=== PATIENT | male | born 1965 | race Caucasian/White ===

== ENCOUNTER 2021-04-09 13:49 | Emergency (ER) | payer MEDICAID ==
[~2021-04-09] VITALS: Ht 175.3 cm; Wt 81.6 kg
[2021-04-09 14:10] VITALS: BP_SYST 131
[2021-04-09 15:57] VITALS: BP_SYST 131
== END 2021-04-09 15:57 ==
LOC: SED 13:49
DX: R53.83 Other fatigue (principal); E11.9 Type 2 diabetes mellitus without complications
CPT/HCPCS: 71045; 82962; 93005; 99283